=== PATIENT | female | born 2000 | race Caucasian/White ===

== ENCOUNTER 2024-02-08 22:14 | Emergency (ER) | payer OTHER, SELFPAY ==
[2024-02-08 22:15] VITALS: BP 156/109; BMI 35.4
[2024-02-08 22:32] VITALS: BP 153/101
--- NOTE | 2024-02-08 22:54 | ED.GENMED ---
History of Present Illness
<FLY Becerril - Last Filed: 02/08/24 23:09>
General
Chief Complaint: Chest Pain
Source: patient
Exam Limitations: none
Time Seen by Provider: 02/08/24 22:35
Nursing documentation reviewed up to this point in time: agreed with
Travel History
Have you had any contact with someone who has COVID-19?: No
Do you have any symptoms of coronavirus? Fever > 100 degrees, chills, cough, shortness of breath, sore throat, loss of taste or smell, muscle aches, or headache?: No
History of Present Illness
History of Present Illness:
patient is a 23 y/o female presenting for chest pain x 3 hours. patient states the pain came on at 8pm out of nowhere. patient admits that she took some Pepto Bismol to see if that would give relief but it did not. Patient states its a sharp pain on
the left side of her chest that does not radiate but is worse with breathing. Patient admits that she has had a CARIAS since the beginning of the day that she describes as all over. Patient admits to having an endoscopy, colonoscopy and biopsy done on
due to recent change in stool and FH of polyps. Patient states that she has had diarrhea all week do to the laxatives that she was drinking for the procedure. Results of the procedure were clear with no findings. Patient denies SOB,
dizziness, abdominal pain, heartburn, cough, fever, chills, N/V/C. Patient denies meals making her symptoms better or worse. Patient denies any previous episodes, change in medications, change in diet or recent illness. patient denies alcohol or
tobacco in the last 48 hours.
Past History
<FLY Becerril - Last Filed: 02/08/24 23:09>
Past History
ED Past Medical History: Other (PCOS on OCs and metformin)
ED Past Surgical History: None
Social History
Tobacco: Non-smoker
Review of Systems
<FLY Becerril - Last Filed: 02/08/24 23:09>
Review of Systems
All Other Systems: Not applicable
Constitutional: Reports no symptoms
EENT: Reports no symptoms
Respiratory: Reports trouble breathing
Cardiac: Reports chest pain
ABD/GI: Reports diarrhea
: Reports no symptoms
Musculoskeletal: Reports no symptoms
Skin: Reports no symptoms
Neurological: Reports no symptoms
Endocrine: Reports no symptoms
Hematologic/Lymphatic: Reports no symptoms
Psychiatric: Reports no symptoms
Phy Exam
<FLY Becerril - Last Filed: 02/08/24 23:09>
General Physical Exam
General Presentation: well appearing and no apparent distress
General Skin: warm and dry
General Habitus: normal
General Mental: alert
General Hydration: appears well hydrated
ENT Exam
ENT Exam: EOMI, pharynx normal, neck supple and normocephalic
Eye Exam
Eye Exam: PERRL, cornea clear and conjunctiva normal
Cardiovascular Exam
Cardiovascular Exam: regular rate/rhythm, no edema, no murmur and normal peripheral pulses
Pulmonary Exam
Pulmonary Exam: lungs clear, no respiratory distress, no rales, no crackles, no rhonchi, no stridor, no wheezing and no cough
Respiratory Effort: poor respiratory effort
Gastrointestinal Exam
Gastrointestinal Exam: normal bowel sounds, non tender, soft, no organomegaly, no pulsatile mass and non distended
Neurological Exam
Neurological Exam: alert, oriented x3, no motor deficits and speech normal
Musculoskeletal Exam
Musculoskeletal Exam: full ROM and no edema
Skin Exam
Skin Exam: normal color, warm/dry, no rash and no petechia
Psychiatric Exam
Psychiatric Exam: normal mood/affect
<Naty Sevilla DO - Last Filed: 02/09/24 06:31>
Heart Score for Chest Pain Patients
STEMI patient?: Not applicable
Course
<FLY Becerril - Last Filed: 02/08/24 23:09>
Orders/Labs/Results
Orders:
Orders
02/08/24 22:17
EKG [Electrocardiogram (*1)] Urgent
Reason for Study: Chest Pain
EKG- Treatment ONCE
02/08/24 23:06
Test Result ONCE
02/08/24 23:15
0.9% Sodium Chloride 1000 ml [Nss] 1,000 ml IV BOLUS
02/08/24 23:35
Complete Blood Count/With Diff Urgent
Comprehensive Metabolic Panel Urgent
DDimer [D-Dimer] Urgent
HCG, Serum Qualitative Screen Urgent
Lipase Urgent
02/09/24 00:30
CT Chest Pe Study Urgent
Comment:
Reason For Exam: pleuritic CP, elevated d-dimer
02/09/24 02:16
Mag Hydrox/Al Hydrox/Simeth [Maalox] 30 ml Phenobarb/Hyoscy/Atropine/Scop [] 10 ml Viscous Lidocaine 2% [Xylocaine Viscous Cup] 10 ml PO NOW
02/09/24 02:49
Mag Hydrox/Al Hydrox/Simeth [Maalox] 30 ml .ROUTE .STK-MED ONE
Phenobarb/Hyoscy/Atropine/Scop [] 10 ml .ROUTE .STK-MED ONE
Viscous Lidocaine 2% [Xylocaine Viscous Cup] 15 ml .ROUTE .STK-MED ONE
02/09/24 04:02
Ketorolac [Toradol] 30 mg .ROUTE .STK-MED ONE
02/09/24 04:03
Ketorolac [Toradol] 30 mg IV NOW STA
Abnormal Lab Results
02/08/24
23:35
Absolute Lymphs (auto) 1.0 L 10^3/uL
(1.2-3.4)
Absolute Monos (auto) 0.8 H 10^3/uL
(0.1-0.6)
Lymphocytes % 13.7 L %
(20.5-51.1)
Monocytes % 11.6 H %
(1.7-9.3)
D-Dimer 1.48 H ug/mlFEU
(0.00-0.50)
Sodium 130 L mmol/L
(135-145)
Chloride 95 L mmol/L
(98-107)
AST 70 H U/L
(14-36)
ALT 71 H U/L
(0-35)
02/08/24 23:35
02/08/24 23:35
Vital Signs
Initial and Last Documented VS:
Initial Vital Signs
Temp Pulse Resp BP Pulse Ox
98.2 F 89 16 156/109 99
02/08/24 22:15 02/08/24 22:15 02/08/24 22:15 02/08/24 22:15 02/08/24 22:15
Last Documented Vital Signs
Temp Pulse Resp BP Pulse Ox
98.2 F 86 22 132/84 97
02/08/24 22:15 02/09/24 04:36 02/09/24 04:36 02/09/24 04:36 02/09/24 04:36
<Naty Sevilla, DO - Last Filed: 02/09/24 06:31>
Orders/Labs/Results
Orders:
Orders
02/08/24 22:17
EKG [Electrocardiogram (*1)] Urgent
Reason for Study: Chest Pain
EKG- Treatment ONCE
02/08/24 23:06
Test Result ONCE
02/08/24 23:15
0.9% Sodium Chloride 1000 ml [Nss] 1,000 ml IV BOLUS
03/24/24 23:35
Complete Blood Count/With Diff Urgent
Comprehensive Metabolic Panel Urgent
DDimer [D-Dimer] Urgent
HCG, Serum Qualitative Screen Urgent
Lipase Urgent
02/09/24 00:30
CT Chest Pe Study Urgent
Comment:
Reason For Exam: pleuritic CP, elevated d-dimer
02/09/24 02:16
Mag Hydrox/Al Hydrox/Simeth [Maalox] 30 ml Phenobarb/Hyoscy/Atropine/Scop [] 10 ml Viscous Lidocaine 2% [Xylocaine Viscous Cup] 10 ml PO NOW
02/09/24 02:49
Mag Hydrox/Al Hydrox/Simeth [Maalox] 30 ml .ROUTE .STK-MED ONE
Phenobarb/Hyoscy/Atropine/Scop [] 10 ml .ROUTE .STK-MED ONE
Viscous Lidocaine 2% [Xylocaine Viscous Cup] 15 ml .ROUTE .STK-MED ONE
02/09/24 04:02
Ketorolac [Toradol] 30 mg .ROUTE .STK-MED ONE
02/09/24 04:03
Ketorolac [Toradol] 30 mg IV NOW STA
Abnormal Lab Results
02/08/24
23:35
Absolute Lymphs (auto) 1.0 L 10^3/uL
(1.2-3.4)
Absolute Monos (auto) 0.8 H 10^3/uL
(0.1-0.6)
Lymphocytes % 13.7 L %
(20.5-51.1)
Monocytes % 11.6 H %
(1.7-9.3)
D-Dimer 1.48 H ug/mlFEU
(0.00-0.50)
Sodium 130 L mmol/L
(135-145)
Chloride 95 L mmol/L
(98-107)
AST 70 H U/L
(14-36)
ALT 71 H U/L
(0-35)
02/08/24 23:35
02/08/24 23:35
Vital Signs
Initial and Last Documented VS:
Initial Vital Signs
Temp Pulse Resp BP Pulse Ox
98.2 F 89 16 156/109 99
02/08/24 22:15 02/08/24 22:15 02/08/24 22:15 02/08/24 22:15 02/08/24 22:15
Last Documented Vital Signs
Temp Pulse Resp BP Pulse Ox
98.2 F 86 22 132/84 97
02/08/24 22:15 02/09/24 04:36 02/09/24 04:36 02/09/24 04:36 02/09/24 04:36
<FLY Becerril - Last Filed: 02/08/24 23:09>
MDM/Problems Addressed
Differential Diagnosis Includes:
PE
Costochondritis
GERD
MDM/Problems Addressed:
chest pain
<FLY Becerril - Last Filed: 02/08/24 23:09>
*Critical Care Note
Total Time (30-74mins, 75-104mins- exclusive of procedures): Not Applicable
<Naty Sevilla DO - Last Filed: 02/09/24 06:31>
*Radiology
Radiology exam reviewed: radiology read reviewed
*Pulse Oximetry
Patient hypoxic: no
*EKG
Interpreted by ED Provider?: Yes
Interpretation: normal
Comparison EKG: no comparison EKG present
Rate: normal
Rhythm: sinus
[place]: normal axis
Interval: normal interval
QRS Pattern: normal QRS
Ischemia: no ischemia
*Projects Manager Interpretation
Rate: normal
Interpretation: normal
Rhythm: sinus
ED Attending Note
<FLY Becerril - Last Filed: 02/08/24 23:09>
-
Portions of this chart may have been created with voice recognition software.� Occasional wrong word or��sound alike� substitutions may have occurred due to the inherent limitations of voice recognition software.
<Naty Sevilla DO - Last Filed: 02/09/24 06:31>
ED Attending Note
Patient seen and examined by attending physician: Yes
I performed the substantive portion of visit, reviewed & personally made and approve the management plan that is documented in note by myself or TOMMIE.: Yes
I performed a history and physical exam of patient and discussed management with resident, I reviewed resident's note and agree with documented findings and plan of care.: Yes
ED Attending Note:
This is a 23-year-old overweight female with history of PCOS, anxiety chronically maintained on metformin, oral contraceptives and Pristiq. She has had somewhat chronic GI issues with intermittent diarrhea and has been following with a
eye technician and underwent endoscopy and colonoscopy 3 days ago which were reportedly unremarkable.
Since this procedures patient admits to ongoing loose stools, nausea without vomiting. She has had limited oral intake over the past 3 days, consuming clear liquids, soft foods such as yogurt. Tonight around 8 PM she developed lower substernal
chest pain that has been persistent, now primarily left parasternal, worse with deep breath. Initially thought that she had heartburn but no relief after a dose of Pepto-Bismol. She has not had a cough nor shortness of breath, no fevers or chills,
no back pain. She does admit to somewhat similar but less intense chest pain that persisted for approximately a week occurring 1 month ago but then resolved.
No leg pain or swelling.
No recent travel.
Lifelong non-smoker.
Records reviewed. Previous ED visit 2020 with complaint of shortness of breath. Unremarkable ED evaluation at that time. A follow-up outpatient echocardiogram was unremarkable.
GENERAL: 23-year-old overweight female appears her stated age, awake and alert, mildly apprehensive but easily communicative. Mother is accompanying.
EYE: anicteric
NECK: Supple, nontender, no meningismus, no significant adenopathy.
ENT: oral mucosa is moist. No rhinorrhea.
CARDIAC: Regular rate and rhythm. no murmur. No rub. Mild tenderness left lower parasternal region. Unclear if palpation exactly reproduces patient's pain complaint. There is no crepitus.
LUNGS: Clear breath sounds bilaterally, no acute respiratory distress, no wheezes/rales/rhonchi
ABDOMEN: Rotund, soft, nondistended, without focal tenderness, no r/g, no cvat. normoactive BS.
NEUROLOGICAL: Alert and oriented x3, no focal neuro deficits.
SKIN: Warm and dry, normal color, skin intact. No rash.
MUSCULOSKELETAL: No C/C/E. peripheral pulses are full and equal b/l. No palpable tenderness.
PSYCH: Mildly anxious. Easily communicative.
Concern for GERD, costochondritis, pleurisy, less likely pneumonia. As patient maintained on control pills there is potential for PE.
EKG is within normal limits. Normal sinus rhythm, normal axis, normal intervals, no acute ST-T wave abnormalities. ACS is unlikely.
No recent URIs, afebrile, no rub and no ST segment elevation, nothing to signify pericarditis.
She has had some nausea over the past 3 days with intermittent loose stools after endoscopy/colonoscopy. Concern for lingering effects of colonoscopy prep/anesthesia. Other consideration is a gastroenteritis. Abdomen is soft, nontender.
Concern for potential dehydration, electrolyte abnormality.
Will check labs including D-dimer. If dimer is negative we will plan for chest x-ray, if positive we will plan for CT of the chest/PE study.
Will initiate IV fluids.
02/09/2024 04:25 AM
D-dimer mildly elevated thus CT of the chest performed which is unremarkable. No PE. No consolidation.
Patient given GI cocktail with only minimal, brief improvement. After an IV dose of Toradol however patient reports moderate improvement in pain, resting comfortably.
Mild hypertension has markedly improved as well.
Will discharge to home with short course of Carafate for potential GERD/esophagitis and will add a short course of Toradol for potential musculoskeletal pain, potential costochondritis.
Recommend supportive measures, bland diet, heating pad, rest.
Prompt follow-up with PCP for recheck.
Discharge Plan
Departure
Patient Disposition: Home (Routine Discharge)
Date of Disposition: 02/09/24
Time of Disposition: 04:23
Patient with high blood pressure during this ER visit?: Yes
Condition: Fair
Discharge Problem:
Acute chest pain, GERD vs costochondritis
Instructions: Acid Reflux and GERD in Adults (DC), Costochondritis (DC)
Prescriptions:
New
sucralfate [Carafate] 100 mg/mL suspension
10 ml PO QID PRN (Reason: acid reflux) Qty: 400 0RF
ketorolac 10 mg tablet
10 mg PO QID PRN (Reason: pain) Qty: 20 0RF
No Action
RabAvert (PF) 2.5 unit Suspension For Reconstitution
1 ml IM . DIRECTED Qty: 3 0RF
Rx Instructions:
10/09/2023, 10/13/2023, 10/20/2023 for subsequent doses
desvenlafaxine succinate [Pristiq] 50 mg Tablet Extended Release 24 Hr
50 mg PO DAILY
metformin 500 mg Tablet
500 mg PO DAILY
1 mg-20 mcg (24)/75 mg (4) Tablet
1 tab PO DAILY
Referrals:
Raquel Betancourt PA-C [Family Provider] - Call in 1-3 days for appt
Interventions
Interventions:
*Risk Screen - Suicide Last Done: 02/08/24 22:15
*General Assessment Last Done: 02/08/24 22:27
*Neglect/Abuse Screening Last Done: 02/08/24 22:15
ED- Fall Risk Assessment Last Done: 02/08/24 22:27
*ED COVID-19 Vaccine History Last Done: 02/08/24 22:15
*Nursing Disposition Last Done: 02/09/24 04:36
ED- Cardiac Assessment Last Done: 02/08/24 22:27
Discharge Date and Time
Discharge Date/Time: 02/09/24 04:38
[2024-02-08 23:00] VITALS: BP 156/105
[2024-02-08] MEDS: NSS 1000 IV (23:36)
[2024-02-08 23:47] LABS: % Basophils 0.3 % (0-2); % Eosinophils 0.4 % (0-6); % Immature Granulocytes 0.3 % (0-0.5); % Lymphocytes 13.7 % (20.5-51.1); % Monocytes 11.6 % (1.7-9.3); % Neutrophils 73.7 % (42.2-75.2); Absolute Monocytes 0.8 10^3/uL (0.1-0.6); Absolute Neutrophils 5.3 10^3/uL (1.4-6.5); Hematocrit 37.9 % (37.0-47.0); Hemoglobin 12.7 g/dL (12.0-16.0); Mean Corp Hgb Conc. 33.5 g/dL (33.0-37.0); Mean Corpuscular Hgb 27.7 pg (27.0-31.0); Mean Corpuscular Volume 82.8 fL (81.0-99.0); Nucleated Red Blood Cells % 0 %; Platelet Count 217 10^3/uL (130-400); Red Blood Cell Count 4.58 10^6/uL (4.20-5.40); Red Cell Dist. Width 12.9 % (11.5-14.5); White Blood Cell Count 7.2 10^3/uL (4.8-10.8)
[2024-02-09] VITALS: BP 166/120
[2024-02-09] LABS: HCG, Serum Qualitative Screen Negative
[2024-02-09 00:09] LABS: ALT (SGPT) 71 U/L (0-35); AST (SGOT) 70 U/L (14-36); Albumin 4.2 g/dl (3.5-5.0); Alkaline Phosphatase 82 U/L (38-126); Blood Urea Nitrogen 8 mg/dl (7-17); Calcium 9.6 mg/dl (8.4-10.2); Carbon Dioxide 22 mmol/L (22-30); Chloride 95 mmol/L (98-107); Estimated Creatinine Clearance > 125 ml/min; Glucose 98 mg/dl (70-99); Potassium 3.6 mmol/L (3.5-5.1); Sodium 130 mmol/L (135-145); Total Protein 6.8 g/dl (6.3-8.2); eGFR > 60.00
[2024-02-09 00:22] LABS: D-Dimer 1.48 ug/mlFEU (0.00-0.50)
[2024-02-09 00:44] LABS: Lipase 99 U/L (23-300)
[2024-02-09 01:08] VITALS: BP 151/100
[2024-02-09] MEDS: MAALOX 50 PO (02:51)
[2024-02-09] MEDS: TORADOL 30 MG IV (04:03)
[2024-02-09 04:36] VITALS: BP 132/84
== END 2024-02-09 04:38 | disposition home or self-care (01) ==
LOC: EMR 22:14
PROVIDERS: EMERGENCY PHYSICIAN Emergency Medicine; FAMILY PHYSICIAN Physician Assistant Medical
DX: R07.89 Other chest pain (principal); R11.0 Nausea; R19.7 Diarrhea, unspecified; I10 Essential (primary) hypertension; F41.9 Anxiety disorder, unspecified; E28.2 Polycystic ovarian syndrome; Z98.890 Other specified postprocedural states
CPT/HCPCS: 99285; 96374; 96361; 71275; 80053; 83690; 84703; 85025; 85379; 93005; Q9967

== ENCOUNTER → 2025-03-31 09:36 | Emergency (ER) | payer OTHER, SELFPAY ==
[2025-03-31 09:39] VITALS: BP 134/92
--- NOTE | 2025-03-31 10:13 | ED.GENMED ---
History of Present Illness
General
Chief Complaint: Skin Surface Trauma
Source: patient
Exam Limitations: none
Time Seen by Provider: 03/31/25 10:01
Nursing documentation reviewed up to this point in time: agreed with
History of Present Illness
History of Present Illness:
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 Patient is right-hand dominant. Patient denies significant bleeding. Denies any other injuries. Tetanus vaccination
is up-to-date.
Past History
Past History
ED Past Medical History: Other (PCOS on OCs and metformin)
ED Past Surgical History: None
Social History
Tobacco: Non-smoker
Review of Systems
Review of Systems
Allergies reviewed?: Yes
All Other Systems: ROS reviewed and negative except as documented in HPI and ROS
Constitutional: Reports no symptoms
Musculoskeletal: Reports no symptoms
Skin: Reports other (finger laceration)
Neurological: Reports no symptoms
Phy Exam
Physical Exam
Physical Exam:
Physical Exam
General: no apparent distress, not acutely ill. afebrile
Head: nc/at. eomi
Neck: supple. normal range of motion.
Abdomen: normal bowel sounds. not tender.
Neuro: alert and oriented x 3. no focal neurological deficits
Skin: left 1st phalanx: superficial horizontal laceration noted over distal aspect of nail, with approx 1/3 intact. no active bleeding. no subungal hematoma noted. nontender to palpation.
Psychiatric: well kept. interactive and cooperative
Extremities: no edema.
Course
Vital Signs
Initial and Last Documented VS:
Initial Vital Signs
Temp Pulse Resp BP Pulse Ox
98.5 F 93 18 134/92 98
03/31/25 09:39 03/31/25 09:39 03/31/25 09:39 03/31/25 09:39 03/31/25 09:39
Last Documented Vital Signs
Temp Pulse Resp BP Pulse Ox
98.5 F 93 18 134/92 98
03/31/25 09:39 03/31/25 09:39 03/31/25 09:39 03/31/25 09:39 03/31/25 09:39
MDM/Problems Addressed
MDM/Problems Addressed:
History and exam consistent with likely superficial laceration, unlikely to involve nailbed, although difficult to complete exclude. As there does not appear to be significant deep injury, I do not believe it is worthwhile to remove intact nail to
investigate. As such, patient will be discharged home with recommendation to the affected wound clean, along with close PCP or workup physician follow-up. Advised return to ED with worsening symptoms. Patient otherwise is neurovascularly intact
at time of discharge.
*Critical Care Note
Total Time (30-74mins, 75-104mins- exclusive of procedures): Not Applicable
ED Attending Note
-
Portions of this chart may have been created with voice recognition software.� Occasional wrong word or��sound alike� substitutions may have occurred due to the inherent limitations of voice recognition software.
Discharge Plan
Departure
Patient Disposition: Home (Routine Discharge)
Date of Disposition: 03/31/25
Time of Disposition: 10:14
Patient with high blood pressure during this ER visit?: Yes
Condition: Good
Discharge Problem:
Finger laceration
Instructions: Wound Care (DC)
Prescriptions:
No Action
RabAvert (PF) 2.5 unit Suspension For Reconstitution
1 ml IM . DIRECTED Qty: 3 0RF
Rx Instructions:
10/09/2023, 10/13/2023, 10/20/2023 for subsequent doses
desvenlafaxine succinate [Pristiq] 50 mg Tablet Extended Release 24 Hr
50 mg PO DAILY
metformin 500 mg Tablet
500 mg PO DAILY
24 1 mg-20 mcg (24)/75 mg (4) Tablet
1 tab PO DAILY
sucralfate [Carafate] 100 mg/mL suspension
10 ml PO QID PRN (Reason: acid reflux) Qty: 400 0RF
ketorolac 10 mg tablet
10 mg PO QID PRN (Reason: pain) Qty: 20 0RF
Activity Restrictions/Additional Instructions:
As discussed, please follow-up with your primary care physician and/or work comp physician for reevaluation. Please return to ED with worsening symptoms.
Interventions
Interventions:
*Risk Screen - Suicide Last Done: 03/31/25 09:39
*General Assessment Last Done: 03/31/25 09:39
*Neglect/Abuse Screening Last Done: 03/31/25 09:39
*ED- Fall Risk Assessment Last Done: 03/31/25 09:39
*ED COVID-19 Vaccine History Last Done: 03/31/25 09:39
Discharge Date and Time
Print Language: BULGARIAN
== END | disposition home or self-care (01) ==
LOC: EMR 09:36
PROVIDERS: EMERGENCY PHYSICIAN Emergency Medicine; FAMILY PHYSICIAN Family Medicine
DX: S61.012A Laceration without foreign body of left thumb without damage to nail, initial encounter (principal); W27.8XXA Contact with other nonpowered hand tool, initial encounter; Y99.0 Civilian activity done for income or pay
CPT/HCPCS: 99282

== ENCOUNTER → 2025-09-21 08:06 | Outpatient (REF) | payer OTHER, SELFPAY | LOC: HWRAD 08:06 | PROVIDERS: ATTENDING PHYSICIAN Physician Assistant Medical | DX: R35.0 Frequency of micturition (principal) | CPT/HCPCS: 76770 ==